=== PATIENT | female | born 1955 | race Caucasian/White ===

== ENCOUNTER 2016-07-10 08:29 | Day surgery (SDC) | payer MEDICARE, MEDICAID ==
[~2016-07-10 08:29] MED LIST: RINGERS SOLUTION,LACTATED 1,000 ML IV PRN; ceFAZolin SODIUM 1 GM in DEXTROSE 5 % IN WATER 100 ML IV PRN
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
[2016-07-10] MEDS ORDERED: RINGERS SOLUTION,LACTATED 1,000 ML IV ONE ×2 (09:09→11:50)
[2016-07-10] MEDS ORDERED: LIDOCAINE HCL 50 ML VIAL IJ ONE (10:00)
[2016-07-10] MEDS ORDERED: BUPIVACAINE HCL 50 ML VIAL IJ ONE (10:00)
[2016-07-10 13:12] VITALS: BP 152/92
== END 2016-07-10 08:30 | disposition home or self-care (01) ==
LOC: AMB 08:29
PROVIDERS: ATTEND Student in an Organized Health Care Education/Training Program
PROC: 0YBM0ZX Excision of Right Foot, Open Approach, Diagnostic (ICD-10-PCS; 2016-07-10)
PROC: 0JBQ0ZZ Excision of Right Foot Subcutaneous Tissue and Fascia, Open Approach (ICD-10-PCS; 2016-07-10)
PROC: 0QBN0ZZ Excision of Right Metatarsal, Open Approach (ICD-10-PCS; principal; 2016-07-10 10:00)
DX: M21.611 Bunion of right foot (principal); M20.41 Other hammer toe(s) (acquired), right foot; M06.371 Rheumatoid nodule, right ankle and foot; I10 Essential (primary) hypertension; F17.200 Nicotine dependence, unspecified, uncomplicated; Z68.1 Body mass index [BMI] 19.9 or less, adult